=== PATIENT | male | born 1970 | race Caucasian/White ===

== ENCOUNTER 2018-03-29 23:13 | Emergency (ER) | payer OTHER ==
--- NOTE | 2018-03-29 23:56 | EDPHYS ---
Physician Documentation [facility] Name: Olaf Carver Age: 47 yrs Sex: Male : 1970 Arrival Date: 03/29/2018 Time: 23:14 Bed 28 Private MD: Clayton Waters T ED Physician Jese Howard HPI: 03/29 23:49 This 47 yrs old Male presents to ER via Ambulatory with complaints of gs Choked/Choking. 23:49 The patient presents with esophageal foreign body sensation cannot drink liquids gs without choking.. Onset: The symptoms/episode began/occurred at 09:30. Associated signs and symptoms: Pertinent negatives: chest pain. Severity of pain: At its worst the pain was mild in the emergency department the pain is unchanged. The patient has experienced similar episodes in the past, a few times. Historical: - Allergies: 23:33 No Known Allergies; mg2 - Home Meds: 23:33 Nexium Oral [Active]; mg2 - PMHx: 23:33 None; mg2 - PSHx: 23:33 None; mg2 - Immunization history:: Flu vaccine is not up to date. - Social history:: Smoking status: Patient uses tobacco products, denies chronic smoking, but will smoke occasionally, Patient uses alcohol, occasionally. - Ebola Screening: : No symptoms or risks identified at this time. ROS: 23:49 All other systems are negative. gs Exam: 23:49 Head/Face: Normocephalic, atraumatic. Eyes: Pupils equal round and reactive to light, gs extra-ocular motions intact. Lids and lashes normal. Conjunctiva and sclera are non-icteric and not injected. Cornea within normal limits. Periorbital areas with no swelling, redness, or edema. ENT: Nares patent. No nasal discharge, no septal abnormalities noted. Tympanic membranes are normal and external auditory canals are clear. Oropharynx with no redness, swelling, or masses, exudates, or evidence of obstruction, uvula midline. Mucous membranes moist. Neck: Trachea midline, no thyromegaly or masses palpated, and no cervical lymphadenopathy. Supple, full range of motion without nuchal rigidity, or vertebral point tenderness. No Meningismus. Chest/axilla: Normal chest wall appearance and motion. Nontender with no deformity. No lesions are appreciated. Cardiovascular: Regular rate and rhythm with a normal S1 and S2. No gallops, murmurs, or rubs. Normal PMI, no JVD. No pulse deficits. Respiratory: Lungs have equal breath sounds bilaterally, clear to auscultation and percussion. No rales, rhonchi or wheezes noted. No increased work of breathing, no retractions or nasal flaring. Abdomen/GI: Soft, non-tender, with normal bowel sounds. No distension or tympany. No guarding or rebound. No evidence of tenderness throughout. Back: No spinal tenderness. No costovertebral tenderness. Full range of motion. Skin: Warm, dry with normal turgor. Normal color with no rashes, no lesions, and no evidence of cellulitis. MS/ Extremity: Pulses equal, no cyanosis. Neurovascular intact. Full, normal range of motion. Neuro: Awake and alert, GCS 15, oriented to person, place, time, and situation. Cranial nerves II-XII grossly intact. Motor strength 5/5 in all extremities. Sensory grossly intact. Cerebellar exam normal. Normal gait. 23:49 Constitutional: The patient appears alert, awake. Vital Signs: 23:34 BP 157 / 95; Pulse 77; Resp 18; Temp 98.4; Pulse Ox 98% on R/A; Weight 107.5 kg; Height mg2 6 ft. 1 in. (185.42 cm); Pain 10/10; 03/30 00:09 BP 141 / 91; Pulse 69; Resp 18; Pulse Ox 96% on R/A; mg2 00:59 BP 146 / 80; Pulse 78; Resp 18; Pulse Ox 100% on R/A; Pain 0/10; mg2 03/29 23:34 Body Mass Index 31.27 (107.50 kg, 185.42 cm) mg2 MDM: 03/29 23:41 Patient medically screened. gs 23:49 Differential diagnosis: esophageal stricture, impacted fb. Data reviewed: vital signs, nurses notes. 03/30 00:50 ED course: passed fb able to drink no more regurgitation. 03/30 00:03 Order name: CONS Physician Consult EDMS Administered Medications: No medications were administered Disposition: 03/30/18 00:50 Discharged to Home. Impression: Unspecified foreign body in esophagus. - Condition is Stable. - Discharge Instructions: Food Choices for Gastroesophageal Reflux Disease, Adult. - Medication Reconciliation Form, Thank You Letter, Antibiotic Education, Prescription Opioid Use form. - Follow up: Jose De Jesus Back MD; When: 2 - 3 days; Reason: Recheck today's complaints, Re-evaluation by your physician. Signatures: Dispatcher [employer] EDAdeline Alvarez RN RN Jese Howard MD MD Vignesh Thomas RN RN mg2 Corrections: (The following items were deleted from the chart) 00:46 03/29 23:55 Hospitalization Ordered by Grady Pantoja MD for Observation. Preliminary diagnosis is Esophageal obstruction. Bed requested for Telemetry/MedSurg (observation). Status is Observation. Condition is Stable. Problem is new. Symptoms are unchanged. UTI on Admission? No. 03/30 00:49 00:46 03/29/2018 23:55 Hospitalization Ordered by Grady Pantoja MD for Observation. Preliminary diagnosis is Esophageal obstruction. Bed requested for Telemetry/MedSurg (observation). Status is Observation. Condition is Stable. Problem is new. Symptoms are unchanged. UTI on Admission? No. kl 01:01 00:50 03/30/2018 00:50 Discharged to Home. Impression: Unspecified foreign body in mg2 esophagus. Condition is Stable. Forms are Medication Reconciliation Form, Thank You Letter, Antibiotic Education, Prescription Opioid Use. Follow up: Jose De Jesus Back; When: 2 - 3 days; Reason: Recheck today's complaints, Re-evaluation by your physician.
--- NOTE | 2018-03-29 23:56 | ER ---
Nurse's Notes [facility] Name: Olaf Carver Age: 47 yrs Sex: Male : 1970 Arrival Date: 03/29/2018 Time: 23:14 Bed 28 Private MD: Clayton Waters T Diagnosis: Unspecified foreign body in esophagus Presentation: 03/29 23:25 Presenting complaint: Patient states: he ate chicken for dinner and felt that it is mg2 still stucked in the esophagus. reports pain and discomfort in the chest. Transition of care: patient was received from another setting of care (hospital). Onset of symptoms was March 29, 2018. Risk Assessment: Do you want to hurt yourself or someone else? Patient reports no desire to harm self or others. Initial Sepsis Screen: Does the patient meet any 2 criteria? No. Patient's initial sepsis screen is negative. Does the patient have a suspected source of infection? No. Patient's initial sepsis screen is negative. Care prior to arrival: None. 23:25 Method Of Arrival: Ambulatory mg2 23:25 Acuity: SYED 3 mg2 Historical: - Allergies: 23:33 No Known Allergies; mg2 - Home Meds: 23:33 Nexium Oral [Active]; mg2 - PMHx: 23:33 None; mg2 - PSHx: 23:33 None; mg2 - Immunization history:: Flu vaccine is not up to date. - Social history:: Smoking status: Patient uses tobacco products, denies chronic smoking, but will smoke occasionally, Patient uses alcohol, occasionally. - Ebola Screening: : No symptoms or risks identified at this time. Screenin:35 Abuse screen: Denies threats or abuse. Denies injuries from another. Nutritional mg2 screening: No deficits noted. Tuberculosis screening: No symptoms or risk factors identified. Fall Risk None identified. Assessment: 23:57 General: Appears in no apparent distress. uncomfortable, Behavior is calm, cooperative. mg2 Pain: Complains of pain in chest Pain does not radiate. Pain currently is 10 out of 10 on a pain scale. Quality of pain is described as aching, Pain began gradually, 4 hours ago. Is intermittent, Alleviated by repositioning. Neuro: Level of Consciousness is awake, alert, obeys commands, Oriented to person, place, time, situation. Cardiovascular: Capillary refill < 3 seconds Patient's skin is warm and dry. Respiratory: Airway is patent Respiratory effort is even, unlabored, Respiratory pattern is regular, symmetrical. GI: Reports choking. : No signs and/or symptoms were reported regarding the genitourinary system. EENT: No signs and/or symptoms were reported regarding the EENT system. Derm: Skin is intact, Skin is pink, warm \T\ dry. normal. Musculoskeletal: No signs and/or symptoms reported regarding the musculoskeletal system. 03/30 00:10 Reassessment: Patient appears in no apparent distress at this time. Patient and/or mg2 family updated on plan of care and expected duration. Pain level reassessed. Patient is alert, oriented x 3, equal unlabored respirations, skin warm/dry/pink. 00:59 Reassessment: Patient appears in no apparent distress at this time. Patient and/or mg2 family updated on plan of care and expected duration. Pain level reassessed. Patient is alert, oriented x 3, equal unlabored respirations, skin warm/dry/pink. patient passed the stucked food from his esophagus. tried drinking water and he tolerated it. admission cancelled. dr humphrey informed. patient discharged. Vital Signs: 03/29 23:34 BP 157 / 95; Pulse 77; Resp 18; Temp 98.4; Pulse Ox 98% on R/A; Weight 107.5 kg; Height mg2 6 ft. 1 in. (185.42 cm); Pain 10/10; 03/30 00:09 BP 141 / 91; Pulse 69; Resp 18; Pulse Ox 96% on R/A; mg2 00:59 BP 146 / 80; Pulse 78; Resp 18; Pulse Ox 100% on R/A; Pain 0/10; mg2 03/29 23:34 Body Mass Index 31.27 (107.50 kg, 185.42 cm) mg2 ED Course: 03/29 23:14 Patient arrived in ED. ds1 23:14 Taran Leonardo MD is Private Physician. ds1 23:14 Clayton Waters MD is Private Physician. ds1 23:24 Vignesh Thomas, MILLY is Primary Nurse. mg2 23:28 Jese Howard MD is Attending Physician. gs 23:32 Triage completed. mg2 23:35 Arm band placed on right wrist. mg2 23:54 Grady Pantoja MD is Hospitalizing Provider. gs 23:59 Patient has correct armband on for positive identification. Door closed. Warm blanket mg2 given. 03/30 00:39 No provider procedures requiring assistance completed. Inserted saline lock: 20 gauge mg2 in right antecubital area, using aseptic technique. Blood collected. 00:49 Jose De Jesus Back MD is Referral Physician. 00:58 IV discontinued, intact, bleeding controlled, No redness/swelling at site. Pressure mg2 dressing applied. Administered Medications: No medications were administered Outcome: 03/29 23:55 Decision to Hospitalize by Provider. 03/30 00:50 Discharge ordered by MD. 00:59 Discharged to home ambulatory. mg2 00:59 Condition: stable 00:59 Discharge instructions given to patient, Instructed on discharge instructions, follow up and referral plans. Demonstrated understanding of instructions, follow-up care. 01:01 Patient left the ED. mg2 Signatures: Lisbeth Vásquez ds1 Jese Howard MD MD Vignesh Thomas, RN RN mg2 Corrections: (The following items were deleted from the chart) 03/29 23:35 23:34 BP 157 / 95; Pulse 77bpm; Resp 18bpm; Pulse Ox 98% RA; Temp 98.4F; Pain 10/10; mg2mg2
[2018-03-30] MEDS ORDERED: GLUCAGON 1 MG/VIAL IV STA (00:13)
[2018-03-30] MEDS ORDERED: ONDANSETRON 4 MG/2 ML VIAL IV PRN (00:24)
--- NOTE | 2018-03-30 00:32 | P.HP ---
Certification for Inpatient Patient admitted to: Observation With expected LOS: <2 Midnights Practitioner: I am a practitioner with admitting privileges, knowledge of patient current condition, hospital course, and medical plan of care. Services: Services provided to patient in accordance with Admission requirements found in Title 42 Section 412.3 of the Code of Federal Regulations Patient History Date of Service: 03/30/18 Reason for admission: esophageal foreing body History of Present Illness: Mr Carver is a 47 years old male with history of previous episode of esophageal obstruction, came to ED complaining of foreing body feeling in his esophagus, after ate chicken for dinner last night, around 9:00 PM. Since so, he has been coughing, unable to swallow, water or saliva. He had this problem before several times. At my encounter, the patient is still uncomfortable, without any improvement of his symptoms. Home medications list reviewed: Yes - Past Medical/Surgical History -: esophageal obstruction - Family History Family History: Reviewed- Non-Contributory - Social History Smoking Status: Former smoker CD- Drugs: No Place of Residence: Home Review of Systems 10-point ROS is otherwise unremarkable Physical Examination - Physical Exam General: Alert, In no apparent distress HEENT: Atraumatic, PERRLA, Mucous membr. moist/pink, EOMI, Sclerae nonicteric Neck: Supple, 2+ carotid pulse no bruit, No LAD, Without JVD or thyroid abnormality Respiratory: Clear to auscultation bilaterally, Normal air movement Cardiovascular: Regular rate/rhythm, Normal S1 S2 Gastrointestinal: Normal bowel sounds, No tenderness Musculoskeletal: No tenderness Integumentary: No rashes Neurological: Normal speech, Normal strength at 5/5 x4 extr, Normal tone, Normal affect Lymphatics: No axilla or inguinal lymphadenopathy Assessment and Plan - Problems (Diagnosis) (1) Esophageal foreign body Current Visit: Yes Status: Acute Qualifiers: Encounter type: initial encounter Qualified Code(s): T18.108A - Unspecified foreign body in esophagus causing other injury, initial encounter - Plan The patient will be admitted to the hospital due to esophageal foreing body. Will order IV fluids, NPO, consult Dr Back. Will order Glucagon 1 mg IV x 1, in the meantime. - Advance Directives Does patient have a Living Will: No Does patient have a Durable POA for Healthcare: No
[2018-03-30] MEDS ORDERED: NA CHLORIDE 0.9% 1,000 ML IV SCH (01:00)
== END 2018-03-30 01:01 | disposition home or self-care (01) ==
LOC: ER 23:13 → UNDOADMOB 03-30 00:08 → ERHOLD 03-30 00:08 → ER 03-30 01:01
DX: T18.108A Unspecified foreign body in esophagus causing other injury, initial encounter (principal); Z87.891 Personal history of nicotine dependence; X58.XXXA Exposure to other specified factors, initial encounter; Y93.89 Activity, other specified; Y92.9 Unspecified place or not applicable
CPT/HCPCS: 99283

== ENCOUNTER → 2023-10-01 | Emergency (ER) | payer OTHER ==
--- OUTSIDE RECORDS SUMMARY | 2023-10-01 17:32 | XMS REPORT | Continuity of Care Document ---
Author Name Unknown Address [address] [facility] [address] [place] [address] [facility] thconnect Address [address] [facility] [address] [place] [address] Care Team Providers Care Automobile Rental Representative Name Role Phone GENTRY ZAMUDIO Attending Clinician MARTIR Smith Attending Clinician Unavailable LAB90 Attending Clinician Unavailable ARELY PEARSON Attending Clinician UnavailLEANDRO Hernandez Attending Clinician Unavaila ble Payers Payer Name Policy Type Policy Number Effective Date Expirati on Date Source [facility] 3 [id number] 2022 00:00:00 Problems Condition Name Condition Details Condition Category Status Onset Date Resolution Date Last Treatment Date Treating Clinician Comments Source Dyspnea on exertion Dyspnea on exertion Disease Active 2022-08 00:00: 00 Sidra Peters - Externa alexandre Family history of heart disease Family history of heart disease Disease Active 2022-08 00:00: 00 Sidra Peters - Externa l Gout Gout Disease Active 2022-08 00:00: 00 Sidra Peters - Externa l Allergic rhinitis Allergic rhinitis Disease Active 2022-08 00:00: 00 Sidra Peters - Externa l Class 1 obesity due to excess calories without serious comorbidit y with body mass index (BMI) of 33.0 to 33.9 in adult Class 1 obesity due to excess calories without serious comorbidit y with body mass index (BMI) of 33.0 to 33.9 in adult Disease Active 2022-08 00:00: 00 Sidra Peters - Externa l Poison song dermatitis Poison song dermatitis Disease Active 11-23 00:00: 00 Sidra Peters - Externa l Callus of foot Callus of foot Disease Active 11-23 00:00: 00 Sidra Peters - Externa l Bronchitis Bronchitis Disease Active 08-12 00:00: 00 Sidra Peters - Externa l Chronic cough Chronic cough Disease Active 08-12 00:00: 00 Sidra Peters - Externa l JUDY (obstructi ve sleep apnea) JUDY (obstructi ve sleep apnea) Disease Active 08-12 00:00: 00 Sidra Peters - Externa l Pharyngiti s Pharyngiti s Disease Active 2021-08 00:00: 00 Sidra Peters - Externa l Dermatitis Dermatitis Disease Active 2021-08 00:00: 00 Sidra Peters - Externa l Social History Social Habit Start Date Stop Date Quantity Comments Source History of tobacco use Current smoker Sidra weems - External Gender identity Ashley Peters - External Sexual orientation Zoltan Peters - External Alcohol intake 2023-07-19 00:00:00 2023-07-19 00:00:00 Current drinker of alcohol (finding) Sidra Peters - External History of Social function 2022-11-23 00:00:00 2022-11-23 00:00:00 Sidra Peters - External Sex Ass[birth year] At 1970 00:00:00 1970 00:00:00 Sidra Peters - External Smoking Status Start Date Stop Date Source Ex-smoker 2022-08-12 00:00:00 2022-08-12 00:00:00 Sidra Peters - External Tobacco smoking consumption unknown Sidra Peters - External Medications Ordered Medication Name Filled Medication Name Start Date Stop Date Current Medication? Ordering Clinician Indication Dosage Frequency Signature (SIG) Comments Components Source Ondansetron HCl 4 MG oral Tablet 08-18 00:00: 00 Yes [id number] 4mg Q.[id number] 3D Take 1 tablet (4 mg total) by mouth every 8 hours as needed for nausea. Sidra schroeder Febuxostat 40 MG oral Tablet 2022-08 00:00: 00 Yes [id number] 40mg Take 40 mg by mouth daily. Sidra schroeder Febuxostat 40 MG oral Tablet 2022-08 00:00: 00 Yes [id number] 40mg Take 40 mg by mouth daily. Sidra schroeder Colchicine 0.6 MG oral Tablet 2022-08 00:00: 00 Yes [id number] .6mg Q.5D Take 1 tablet (0.6 mg total) by mouth 2 times daily as needed (gout attack) HOLD if with diarrhea. Sidra schroeder Cetirizine HCl (ZyrTEC Allergy) 10 MG oral Capsule 2022-08 00:00: 00 Yes [id number] 10mg Take 1 capsule (10 mg total) by mouth daily. Sidra schroeder Colchicine 0.6 MG oral Tablet 2022-08 00:00: 00 Yes [id number] .6mg Q.5D Take 1 tablet (0.6 mg total) by mouth 2 times daily as needed (gout attack) HOLD if with diarrhea. Sidra schroeder Cetirizine HCl (ZyrTEC Allergy) 10 MG oral Capsule 2022-08 00:00: 00 Yes [id number] 10mg Take 1 capsule (10 mg total) by mouth daily. Sidra schroeder Triamcinolo ne Acetonide (KENALOG) 40 mg/mL 11-23 21:30: 00 11-23 21:36 :00 No [id number] 40mg Sidra schroeder Triamcinolo ne Acetonide (KENALOG) 40 mg/mL 11-23 21:30: 00 11-23 21:36 :00 No [id number] 40mg 40 mg, intramuscu lar, ONCE, On Mon11/23/22 at 1630, For 1 dose Sidra schroeder predniSONE (DELTASONE) 10 MG oral tablet 11-23 00:00: 00 Yes [id number] One pill twice daily for 5 days then one pill once daily for 5 days Sidra schroeder predniSONE (DELTASONE) 10 MG oral tablet 11-23 00:00: 00 07-19 00:00 :00 No [id number] One pill twice daily for 5 days then one pill once daily for 5 days Sidra schroeder methylPREDN ISolone 4 MG oral Tablet Therapy Pack 09-20 00:00: 00 Yes [id number] 1{malika} Take 1 malika by mouth See Admin Instructio ns Use as directed Sidra schroeder Pseudoeph-B romphen-DM 30-2-10 MG/5ML oral Syrup 09-20 00:00: 00 Yes [id number] 10mL Q.25D Take 10 mL by mouth 4 times daily as needed Sidra schroeder Azithromyci n 250 MG oral Tablet 09-20 00:00: 00 11-23 00:00 :00 No [id number] Take 2 tablets by mouth on day 1 then 1 tablet by mouth daily for 4 days thereafter . Sidra schroeder methylPREDN ISolone 4 MG oral Tablet Therapy Pack 09-20 00:00: 00 11-23 00:00 :00 No [id number] 1{malika} Take 1 malika by mouth See Admin Instructio ns Use as directed Sidra schroeder Pseudoeph-B romphen-DM 30-2-10 MG/5ML oral Syrup 09-20 00:00: 00 11-23 00:00 :00 No [id number] 10mL Q.25D Take 10 mL by mouth 4 times daily as needed Sidra schroeder Azithromyci n 250 MG oral Tablet 09-20 00:00: 00 09-26 05:59 :00 No [id number] Take 2 tablets by mouth on day 1 then 1 tablet by mouth daily for 4 days thereafter . Sidra schroeder Cetirizine HCl (ZyrTEC Allergy) 10 MG oral Capsule - 00:00: 00 Yes [id number] 10mg Take 1 capsule (10 mg total) by mouth daily Sidra schroeder Cetirizine HCl (ZyrTEC Allergy) 10 MG oral Capsule 08-17 00:00: 00 Yes [id number] 10mg Take 1 capsule (10 mg total) by mouth daily Sidra schroeder Cetirizine HCl (ZyrTEC Allergy) 10 MG oral Capsule 08-17 00:00: 00 07-19 00:00 :00 No [id number] 10mg Take 1 capsule (10 mg total) by mouth daily Sidra schroeder Triamcinolo ne Acetonide (KENALOG) 40 mg/mL 08-12 22:45: 00 08-12 22:45 :00 No [id number] 40mg Sidra schroeder Triamcinolo ne Acetonide (KENALOG) 40 mg/mL 08-12 22:45: 00 08-12 22:45 :00 No [id number] 40mg 40 mg, intramuscu lar, ONCE, On Mon08/12/22 at 1645, For 1 dose Sidra schroeder Esomeprazol e Magnesium 40 MG oral Delayed Release Capsule 08-12 16:30: 02 08-12 00:00 :00 No 40mg Take 40 mg by mouth daily Sidra schroeder Famotidine (Pepcid) 20 MG oral tablet 08-12 00:00: 00 Yes [id number] 20mg Take 1 tablet (20 mg total) by mouth 2 times daily Sidra schroeder Famotidine (Pepcid) 20 MG oral tablet 08-12 00:00: 00 Yes [id number] 20mg Take 1 tablet (20 mg total) by mouth 2 times daily Sidra schroeder Famotidine (Pepcid) 20 MG oral tablet 08-12 00:00: 00 Yes [id number] 20mg Take 1 tablet (20 mg total) by mouth 2 times daily Sidra schroeder Cetirizine HCl (ZyrTEC Allergy) 10 MG oral Capsule 08-12 00:00: 00 Yes [id number] 10mg Take 1 capsule (10 mg total) by mouth daily Sidra schroeder Famotidine (Pepcid) 20 MG oral tablet 08-12 00:00: 00 Yes [id number] 20mg Take 1 tablet (20 mg total) by mouth 2 times daily Sidra schroeder Famotidine (Pepcid) 20 MG oral tablet 08-12 00:00: 00 Yes [id number] 20mg Take 1 tablet (20 mg total) by mouth 2 times daily Sidra schroeder Esomeprazol e Magnesium 40 MG oral Delayed Release Capsule 2021-08 15:43: 32 Yes 40mg Take 40 mg by mouth daily Sidra schroeder Amoxicillin -Pot Clavulanate 875-125 MG oral Tablet 2021-08 00:00: 00 Yes [id number] 1{tbl} Take 1 tablet by mouth 2 times daily Sidra schroeder Ketoconazol e 2 % apply externally Cream 2021-08 00:00: 00 Yes [id number] Apply to the affected skin twice daily for 7-10 days Sidra schroeder Fluconazole 100 MG oral Tablet 2021-08 00:00: 00 Yes [id number] 100mg Take 1 tablet (100 mg total) by mouth daily Sidra schroeder Ketoconazol e 2 % apply externally Cream 2021-08 00:00: 00 Yes [id number] Apply to the affected skin twice daily for 7-10 days Sidra schroeder Ketoconazol e 2 % apply externally Cream 2021-08 00:00: 00 Yes [id number] Apply to the affected skin twice daily for 7-10 days Sidra schroeder Benzonatate (Tessalon Perles) 100 MG oral Capsule 2021-08 00:00: 00 Yes [id number] 100mg Q.[id number] 3D Take 1 capsule (100 mg total) by mouth 3 times daily as needed for cough Sidra schroeder Fluconazole 100 MG oral Tablet 2021-08 00:00: 00 Yes [id number] 100mg Take 1 tablet (100 mg total) by mouth daily Sidra schroeder Ketoconazol e 2 % apply externally Cream 2021-08 00:00: 00 Yes [id number] Apply to the affected skin twice daily for 7-10 days Sidra schroeder Fluconazole 100 MG oral Tablet 2021-08 00:00: 00 Yes [id number] 100mg Take 1 tablet (100 mg total) by mouth daily Sidra schroeder Ketoconazol e 2 % apply externally Cream 2021-08 00:00: 00 Yes [id number] Apply to the affected skin twice daily for 7-10 days Sidra schroeder Ketoconazol e 2 % apply externally Cream 2021-08 00:00: 00 Yes [id number] Apply to the affected skin twice daily for 7-10 days Sidra schroeder Fluconazole 100 MG oral Tablet 2021-08 00:00: 00 11-23 00:00 :00 No [id number] 100mg Take 1 tablet (100 mg total) by mouth daily Sidra schroeder Amoxicillin -Pot Clavulanate 875-125 MG oral Tablet 2021-08 00:00: 00 08-12 00:00 :00 No [id number] 1{tbl} Take 1 tablet by mouth 2 times daily Sidra schroeder Benzonatate (Tessalon Perles) 100 MG oral Capsule 2021-08 00:00: 00 08-12 00:00 :00 No [id number] 100mg Q.[id number] 3D Take 1 capsule (100 mg total) by mouth 3 times daily as needed for cough Sidra schroeder rifAMPin 300 MG oral Capsule 9- 00:00: 00 07-15 00:00 :00 No Sidra Seybold - Externa l Vital Signs Vital Name Observation Time Observation Value Comments S ource Systolic blood pressure 2023-07-19 21:14:00 118 mm[Hg] Sidra Seybo ld - External Diastolic blood pressure 2023-07-19 21:14:00 70 mm[Hg] Sidra Seybo ld - External Heart rate 2023-07-19 21:14:00 91 /min Kelse y Seybold - External Body temperature 2023-07-19 21:14:00 36.33 Bita Sidra Seybold - External Respiratory rate 2023-07-19 21:14:00 15 /min Sidra Seybold - External Body height 2023-07-19 21:14:00 185.4 cm Ashley ey Seybold - External Body weight 2023-07-19 21:14:00 116.665 kg Ashley ey Seybold - External BMI 2023-07-19 21:14:00 33.93 kg/m2 Ashley ey Seybold - External Oxygen saturation in Arterial blood by Pulse oximetry 2023-07-19 21:14:00 98 /min Sidra Seybo ld - External Systolic blood pressure 2022-11-23 21:02:00 120 mm[Hg] Sidra Seybo ld - External Diastolic blood pressure 2022-11-23 21:02:00 82 mm[Hg] Sidra Seybo ld - External Heart rate 2022-11-23 21:02:00 82 /min Kelse y Seybold - External Body temperature 2022-11-23 21:02:00 36.78 Bita Sidra Seybold - External Respiratory rate 2022-11-23 21:02:00 15 /min Sidra Seybold - External Body height 2022-11-23 21:02:00 185.4 cm Ashley ey Seybold - External Body weight 2022-11-23 21:02:00 106.595 kg Ashley ey Seybold - External BMI 2022-11-23 21:02:00 31.00 kg/m2 Ashley ey Seybold - External Systolic blood pressure 2022-08-12 22:17:00 152 mm[Hg] Sidra Seybo ld - External Diastolic blood pressure 2022-08-12 22:17:00 86 mm[Hg] Sidra Seybo ld - External Heart rate 2022-08-12 22:17:00 82 /min Kelse y Seybold - External Body temperature 2022-08-12 22:17:00 36.56 Bita Sidra Seybold - External Respiratory rate 2022-08-12 22:17:00 16 /min Sidra Seybold - External Body height 2022-08-12 22:17:00 185.4 cm Ashley ey Seybold - External Body weight 2022-08-12 22:17:00 117.028 kg Ashley ey Seybold - External BMI 2022-08-12 22:17:00 34.04 kg/m2 Ashley ey Seybold - External Systolic blood pressure 2022-07-15 21:30:00 145 mm[Hg] Sidra Seybo ld - External Diastolic blood pressure 2022-07-15 21:30:00 86 mm[Hg] Sidra Seybo ld - External Heart rate 2022-07-15 21:30:00 79 /min Kelse y Seybold - External Body temperature 2022-07-15 21:30:00 36.61 Bita Sidra Seybold - External Respiratory rate 2022-07-15 21:30:00 14 /min Sidra Seybold - External Body height 2022-07-15 21:30:00 185.4 cm Ashley ey Seybold - External Body weight 2022-07-15 21:30:00 117.754 kg Ashley ey Seybold - External BMI 2022-07-15 21:30:00 34.25 kg/m2 Ashley ey Seybold - External Oxygen saturation in Arterial blood by Pulse oximetry 2022-07-15 21:30:00 99 /min Sidra Naylorybo ld - External Encounters Start Date/Time End Date/Time Encounter Type Admission Type Attending [facility] Care Department Encounter ID Source 2023-09-14 00:00:00 2023-09-14 00:00:00 Outpatient GENTRY ZAMUDIO [id number] Sidra Peters 2023-09-14 00:00:00 2023-09-14 00:00:00 Outpatient GENTRY ZAMUDIO [id number] Sidra Peters 2023-08-18 09:00:00 2023-08-18 09:00:00 Outpatient PREZAS, MARTIR BARLORENE JESUS [id number] [facility] 2023-07-24 00:00:00 2023-07-24 00:00:00 Outpatient PREZAS, MARTIR JESUS SIDRA [id number] [facility] 2023-07-24 00:00:00 2023-07-24 00:00:00 Outpatient PREZAS, MARTIR SIDRA JESUS [id number] [facility] 2023-07-21 08:30:00 2023-07-21 08:30:00 Outpatient LAB90 SIDRA JESUS [id number] [facility] 2023-07-19 15:30:00 2023-07-19 15:30:00 Outpatient PREZAS, MARTIR SIDRA JESUS [id number] [facility] 2023-01-26 15:45:00 2023-01-26 18:17:00 Emergency E ARELY PEARSON BL [facility] [id number] 2023-01-24 16:00:00 2023-01-24 16:00:00 Outpatient PREZAS, MARTIR SIDRA JESUS [id number] [facility] 2022-12-27 15:15:00 2022-12-27 15:15:00 Outpatient PRE[facility]AS[facility] [id number] [facility] 08:05:00 2022-11-24 08:05:00 Outpatient LAB90 SIDRA JESUS [id number] [facility] 2022-11-23 15:30:00 2022-11-23 15:30:00 Outpatient PREZAS, MARTIR SIDRA JESUS [id number] [facility] 2022-11-23 00:00:00 2022-11-23 00:00:00 Outpatient PREZAS, MARTIR JESUS [id number] [facility] 2022-10-21 16:15:00 2022-10-21 16:15:00 Outpatient PREZAS, MARTIR JESUS [id number] [facility] 2022-09-20 16:00:00 2022-09-20 16:00:00 Outpatient SHIRLEYLEANDRO Nieves [id number] Sidra Peters 2022-08-17 00:00:00 2022-08-17 00:00:00 Outpatient MARTIR LE [id number] Sidra Peters 2022-08-12 16:15:00 2022-08-12 16:15:00 Outpatient MARTIR LE [id number] Sidra Peters 2022-07-15 15:30:00 2022-07-15 15:30:00 Outpatient MARTIR LE [id number] Sidra Peters
--- NOTE | 2023-10-01 18:37 | EDPHYS ---
Physician Documentation [facility] Name: Olaf Carver Age: 53 yrs Sex: Male : 1970 Arrival Date: 10/01/2023 Time: 17:28 Bed DX1 Private MD: Grey Pedro ED Physician Alvino Turner HPI: 10/01 17:45 This 53 yrs old Male presents to ER via Ambulatory with complaints of Choked/Choking. cp Historical: - Allergies: 17:40 No Known Allergies; nj1 - PMHx: 17:40 Gastric reflux; nj1 - Immunization history:: Client reports receiving the Curt \T\ Curt single-dose vaccine. - Social history:: Smoking status: Patient reports the use of cigarette tobacco products, cigars. ROS: 17:50 Constitutional: Negative for body aches, chills, fever, poor PO intake, cp 17:50 Eyes: Negative for injury, pain, redness, and discharge, cp 17:50 ENT: Positive for difficulty swallowing, Negative for drainage from ear(s), ear pain, difficulty handling secretions, 17:50 Cardiovascular: Negative for chest pain, edema, palpitations, 17:50 Respiratory: Negative for cough, shortness of breath, wheezing, 17:50 Abdomen/GI: Negative for diarrhea, active vomiting, 17:50 Neuro: Negative for altered mental status, dizziness, headache, syncope, weakness, 17:50 All other systems are negative, Exam: 17:55 Constitutional: The patient appears in no acute distress, alert, awake, cp non-diaphoretic, non-toxic, well developed, well nourished, 17:55 Head/Face: Normocephalic, atraumatic. cp 17:55 Eyes: Periorbital structures: appear normal, Conjunctiva: normal, no exudate, no injection, Sclera: no appreciated abnormality, Lids and lashes: appear normal, bilaterally, 17:55 ENT: External ear(s): are unremarkable, Nose: is normal, Mouth: Lips: moist, Oral mucosa: pink and intact, moist, Posterior pharynx: is normal, airway is patent, no erythema, no exudate, 17:55 Neck: ROM/movement: is normal, is supple, without pain, no range of motions limitations, no nuchal rigidity, 17:55 Chest/axilla: Inspection: normal, Palpation: is normal, no crepitus, no tenderness, 17:55 Cardiovascular: Rate: normal, Rhythm: regular, Edema: is not appreciated, JVD: is not appreciated, 17:55 Respiratory: the patient does not display signs of respiratory distress, Respirations: normal, no use of accessory muscles, no retractions, labored breathing, is not present, Breath sounds: are clear throughout, no decreased breath sounds, no stridor, no wheezing, 17:55 Abdomen/GI: Exam negative for discomfort, distension, guarding, Inspection: abdomen appears normal, 17:55 Back: pain, is absent, ROM is normal, 17:55 Neuro: Orientation: to person, place \T\ time. Mentation: is normal, Motor: moves all fours, strength is normal, Gait: is steady, at a normal pace, without difficulty, Vital Signs: 17:36 BP 155 / 108; Pulse 92; Resp 18; Temp 97.9(O); Pulse Ox 99% ; Weight 112.49 kg; Height nj1 6 ft. 1 in. ; 17:36 Body Mass Index 32.72 (112.49 kg, 185.42 cm) nj1 MDM: 17:43 Patient medically screened. cp 18:36 Data reviewed: vital signs, nurses notes. cp 18:36 Consideration of Admission/Observation Escalation of care including cp admission/observation considered. Counseling: I had a detailed discussion with the patient and/or guardian regarding the historical points, exam findings, and any diagnostic results supporting the discharge/admit diagnosis, to return to the emergency department if symptoms worsen or persist or if there are any questions or concerns that arise at home. Response to treatment: the patient's symptoms have resolved after treatment, patient reports food bolus not present and that he feels like it has moved into stomach, and as a result, I will discharge patient. 10/01 17:39 Order name: Cardiac monitoring 10/01 17:39 Order name: EKG - Nurse/Tech 10/01 17:39 Order name: IV Saline Lock 10/01 17:39 Order name: Labs collected and sent 10/01 17:39 Order name: O2 Per Protocol 10/01 17:39 Order name: O2 Sat Monitoring cp Administered Medications: No medications were administered Disposition Summary: 10/01/23 18:37 Discharge Ordered Notes: Location: Home cp Problem: new cp Symptoms: have improved cp Condition: Stable cp Diagnosis - Foreign body of alimentary tract, part unspecified, initial encounter - resolved cp Followup: cp - With: Jose De Jesus Back MD - When: 2 - 3 days - Reason: Recheck today's complaints Discharge Instructions: - Discharge Summary Sheet cp - Esophageal Stricture cp - Esophageal Dilatation cp - Swallowed Foreign Body, Adult cp Forms: - Medication Reconciliation Form cp - Thank You Letter cp - Antibiotic Education cp - Prescription Opioid Use cp - Patient Portal Instructions cp - Leadership Thank You Letter cp Signatures: Dispatcher [employer] EDMS Alvino Amor PA PA cp Yi Dubose RN RN nj1 Corrections: (The following items were deleted from the chart) 17:41 17:40 PMHx: None; nj1 nj1 18:35 17:39 Chest Single View+RAD.RAD.[email or web address] ordered. EDMS EDMS
--- NOTE | 2023-10-01 18:37 | ER ---
Nurse's Notes [facility] Name: Olaf Carver Age: 53 yrs Sex: Male : 1970 Arrival Date: 10/01/2023 Time: 17:28 Bed DX1 Private MD: Grey Pedro Diagnosis: Foreign body of alimentary tract, part unspecified, initial encounter-resolved Presentation: 10/01 17:36 Chief complaint: Patient states: Was eating chicken breast, feels like a piece is stuck nj1 in his esophagus. Has had this happened before. Coronavirus screen: Vaccine status: Patient reports receiving the 1st dose of the Covid vaccine. J\T\J. Ebola Screen: Patient denies travel to an Ebola-affected area in the 21 days before illness onset. Initial Sepsis Screen: Does the patient meet any 2 criteria? HR > 90 bpm. No. Patient's initial sepsis screen is negative. Does the patient have a suspected source of infection? No. Patient's initial sepsis screen is negative. Risk Assessment: Do you want to hurt yourself or someone else? Patient reports no desire to harm self or others. Onset of symptoms was October 01, 2023. 17:36 Method Of Arrival: [facility] 17:36 Acuity: SYED 3 nj1 Historical: - Allergies: 17:40 No Known Allergies; nj1 - PMHx: 17:40 Gastric reflux; nj1 - Immunization history:: Client reports receiving the Curt \T\ Curt single-dose vaccine. - Social history:: Smoking status: Patient reports the use of cigarette tobacco products, cigars. Screenin:46 [facility] ED Fall Risk Assessment (Adult) Score/Fall Risk Level 0 - 2 = Low Risk hb Oriented to surroundings, Maintained a safe environment. Abuse screen: Denies threats or abuse. Denies injuries from another. Nutritional screening: No deficits noted. Tuberculosis screening: No symptoms or risk factors identified. Assessment: 18:46 General: Appears in no apparent distress. Behavior is calm, cooperative. Pain: Denies hb pain. Neuro: Level of Consciousness is awake, alert, obeys commands, Oriented to person, place, time, situation. Cardiovascular: Patient's skin is warm and dry. Respiratory: Respiratory effort is even, unlabored, Respiratory pattern is regular, symmetrical. GI: No signs and/or symptoms were reported involving the gastrointestinal system. : No signs and/or symptoms were reported regarding the genitourinary system. EENT: No signs and/or symptoms were reported regarding the EENT system. Derm: Skin is pink, warm \T\ dry. Musculoskeletal: No signs and/or symptoms reported regarding the musculoskeletal system. Vital Signs: 17:36 BP 155 / 108; Pulse 92; Resp 18; Temp 97.9(O); Pulse Ox 99% ; Weight 112.49 kg; Height nj1 6 ft. 1 in. ; 17:36 Body Mass Index 32.72 (112.49 kg, 185.42 cm) nj1 ED Course: 17:29 Patient arrived in ED. rg4 17:29 Grey Pedro DO is Private Physician. rg4 17:38 Alvino Amor PA is PHCP. cp 17:38 Alvino Turner MD is Attending Physician. cp 17:39 Triage completed. nj1 17:41 Arm band placed on right wrist. nj1 18:35 Jose De Jesus Back MD is Referral Physician. cp 18:46 Patient has correct armband on for positive identification. Provided Education on: hb follow up. 18:46 No provider procedures requiring assistance completed. Patient did not have IV access hb during this emergency room visit. Administered Medications: No medications were administered Medication: 18:46 VIS not applicable for this client. hb Outcome: 18:37 Discharge ordered by . cp 18:46 Discharged to home ambulatory, hb 18:46 Condition: stable 18:46 Discharge instructions given to patient, Instructed on discharge instructions, follow up and referral plans. Demonstrated understanding of instructions, follow-up care, 18:48 Patient left the ED. hb Signatures: Alvino Amor PA PA cp Baxter, Heather RN RN Shae Andrews rg4 Yi Dubose RN RN nj1 Corrections: (The following items were deleted from the chart) 17:41 17:40 PMHx: None; nj1 nj1
[2023-10-01 19:22] VITALS: BP 155/108; TEMP 97.9; O2SAT 99
== END ==
LOC: ER 17:28
DX: T18.9XXA Foreign body of alimentary tract, part unspecified, initial encounter (principal); Z72.0 Tobacco use
CPT/HCPCS: 99282